=== PATIENT | female | born 1995 | race Two or more races ===

== ENCOUNTER 2018-05-01 13:14 | Emergency (ER) | payer MEDICAID ==
--- NOTE | 2018-05-01 13:41 | EDPHY ---
H & P Stated Complaint: M1 Time Seen by Provider: 05/01/18 13:18 HPI/ROS: CHIEF COMPLAINT: Suicidal ideation HISTORY OF PRESENT ILLNESS: 22-year-old female prior history of suicide attempt at age 18 secondary to intentional overdose in the ER on M1 hold from [facility] services after she states that she was unable to keep herself safe, experiencing suicidal ideation without plan. Denies self-injurious behavior such as cutting burning or punching behavior. Denies complaints of pain or discomfort. Denies recent cold or flu-like symptoms or recent illness. REVIEW OF SYSTEMS: 10 systems reviewed and negative with the exception of the elements mentioned in the history of present illness PAST MEDICAL & SURGICAL HISTORY: History of depression and suicide attempt at age 18 SOCIAL HISTORY: Student. Nonsmoker. PHYSICAL EXAM (Prior to examination, patient consented to physical exam, hands were washed and my usual and customary physical exam procedures followed) 1) GENERAL: Well-developed, well-nourished, alert and oriented. Answering questions appropriately 2) HEAD: Normocephalic, atraumatic 3) HEENT: Pupils equal, round, reactive to light bilaterally. Sclera anicteric. 4) NECK: Full range of motion, no meningeal signs. 5) LUNGS: Clear auscultation bilaterally, no wheezes, no rhonchi, no retractions. 6) HEART: Regular rate and rhythm, no murmur, no heave, no gallop. 7) ABDOMEN: No guarding, no rebound, no focal tenderness, negative McBurney's, negative Sloan's, negative Rovsing's, negative peritoneal sign, 8) MUSCULOSKELETAL: Moving all extremities, no focal areas of tenderness, no obvious trauma. No peripheral edema or discoloration. 9) BACK: No CVA tenderness, no midline vertebral tenderness, no fluctuance, no step-off, no obvious trauma, no visual or palpable abnormality. 10) SKIN: No rash, no petechiae. 11) Psychiatric: Patient is oriented X 3, intermittently agitated DIFFERENTIAL DIAGNOSIS: In no particular order including but not limited to suicidal ideation, homicidal ideation, depression - Personal History LMP (Females 10-55): Now - Medical/Surgical History Hx Asthma: No Hx Chronic Respiratory Disease: No Hx Diabetes: No Hx Cardiac Disease: No Hx Renal Disease: No Hx Cirrhosis: No Hx Alcoholism: No Hx HIV/AIDS: No Hx Splenectomy or Spleen Trauma: No Other PMH: Anxiety - Social History Smoking Status: Never smoked Constitutional: Initial Vital Signs Temperature (C) 36.8 C 05/01/18 13:26 Heart Rate 82 05/01/18 13:26 Respiratory Rate 18 05/01/18 13:26 Blood Pressure 113/81 H 05/01/18 13:26 O2 Sat (%) 100 05/01/18 13:26 O2 Delivery Mode Room Air Allergies/Adverse Reactions: No Known Allergies Allergy (Unverified 05/01/18 13:25) Medical Decision Making ED Course/Re-evaluation: 1:40 p.m.: Patient on an M1 hold. Will obtain diagnostic studies and consult with mental health plastic design applier. I saw this patient independently based on established practice protocols. Care of patient under supervision of secondary supervising physician Dr Mendoza with whom I discussed case. 4:00 p.m.: Mental health plastic design applier has evaluated the patient, Dr. Denzel Pride has vacated the M1 hold. Patient will be discharged. - Data Points Laboratory Results: Laboratory Results 05/01/18 13:40 05/01/18 13:40 05/01/18 05/01/18 05/01/18 13:40 13:40 13:40 WBC 7.58 10^3/uL 10^3/uL (3.80-9.50) RBC 4.79 10^6/uL 10^6/uL (4.18-5.33) Hgb 13.9 g/dL g/dL (12.6-16.3) Hct 41.1 % % (38.0-47.0) MCV 85.8 fL fL (81.5-99.8) MCH 29.0 pg pg (27.9-34.1) MCHC 33.8 g/dL g/dL (32.4-36.7) RDW 12.7 % % (11.5-15.2) Plt Count 214 10^3/uL 10^3/uL (150-400) MPV 10.9 fL fL (8.7-11.7) Neut % (Auto) 56.7 % % (39.3-74.2) Lymph % (Auto) 34.7 % % (15.0-45.0) Cassia % (Auto) 6.2 % % (4.5-13.0) Eos % (Auto) 1.2 % % (0.6-7.6) Baso % (Auto) 1.1 % % (0.3-1.7) Nucleat RBC Rel Count 0.0 % % (0.0-0.2) Absolute Neuts (auto) 4.30 10^3/uL 10^3/uL (1.70-6.50) Absolute Lymphs (auto) 2.63 10^3/uL 10^3/uL (1.00-3.00) Absolute Monos (auto) 0.47 10^3/uL 10^3/uL (0.30-0.80) Absolute Eos (auto) 0.09 10^3/uL 10^3/uL (0.03-0.40) Absolute Basos (auto) 0.08 10^3/uL 10^3/uL (0.02-0.10) Absolute Nucleated RBC 0.00 10^3/uL 10^3/uL (0-0.01) Immature Gran % 0.1 % % (0.0-1.1) Immature Gran # 0.01 10^3/uL 10^3/uL (0.00-0.10) Sodium 138 mEq/L mEq/L (135-145) Potassium 4.1 mEq/L mEq/L (3.3-5.0) Chloride 105 mEq/L mEq/L (97-110) Carbon Dioxide 21 mEq/l L mEq/l (22-31) Anion Gap 12 mEq/L mEq/L (8-16) BUN 9 mg/dL mg/dL (7-23) Creatinine 0.7 mg/dL mg/dL (0.6-1.0) Estimated GFR > 60 Glucose 98 mg/dL mg/dL (70-100) Calcium 9.5 mg/dL mg/dL (8.5-10.4) Beta HCG, Qual NEGATIVE Salicylates < 1.0 mg/dL L mg/dL (2.0-20.0) Urine Opiates Screen Acetaminophen < 10 mcg/mL L mcg/mL (10-30) Urine Barbiturates Ur Phencyclidine Scrn Ur Amphetamine Screen U Benzodiazepines Scrn Urine Cocaine Screen U Marijuana (THC) Screen Ethyl Alcohol < 10 mg/dL mg/dL (0-10) 05/01/18 13:38 WBC RBC Hgb Hct MCV MCH MCHC RDW Plt Count MPV Neut % (Auto) Lymph % (Auto) Cassia % (Auto) Eos % (Auto) Baso % (Auto) Nucleat RBC Rel Count Absolute Neuts (auto) Absolute Lymphs (auto) Absolute Monos (auto) Absolute Eos (auto) Absolute Basos (auto) Absolute Nucleated RBC Immature Gran % Immature Gran # Sodium Potassium Chloride Carbon Dioxide Anion Gap BUN Creatinine Estimated GFR Glucose Calcium Beta HCG, Qual Salicylates Urine Opiates Screen NEGATIVE (NEGATIVE) Acetaminophen Urine Barbiturates NEGATIVE (NEGATIVE) Ur Phencyclidine Scrn NEGATIVE (NEGATIVE) Ur Amphetamine Screen NEGATIVE (NEGATIVE) U Benzodiazepines Scrn NEGATIVE (NEGATIVE) Urine Cocaine Screen NEGATIVE (NEGATIVE) U Marijuana (THC) Screen NEGATIVE (NEGATIVE) Ethyl Alcohol Departure - Departure Disposition: Home, Routine, Self-Care Clinical Impression: Severe major depression Condition: Good Instructions: Depression (ED) Additional Instructions: Return to the ER immediately if you experience thoughts of hurting yourself, thoughts of hurting other people, thoughts of killing other people or killing yourself. Referrals: TOMY ALVARADO [Other] - As per Instructions
[2018-05-01 14:02] LABS: PLATELET COUNT 214 10^3/uL (150-400)
[2018-05-01 16:39] VITALS: BP 125/77
--- NOTE | 2018-05-01 18:14 | ASMTTLCEVL ---
TLC Evaluation - Basic Information Evaluation Start Date and 05/01/2018 03:30 PM Time Hospital Status Answers: M1 Hold 72-hr M1 Hold Start Date 05/01/2018 12:30 PM and Time Patient statement Notes: " I was having anxiety attacks and it was really intense." Narrative Notes: Pt is a 22 year old female who presented to [facility] Ed with [place] police on an M1. Pt initially presented to [facility] complaining of anxiety and panic. Pt stated, "" I was looking at all my school work, tests and homework. I had only slept 2 hours, I bailee't eaten. I was claudio relationship with this nick, now I'm not so sure and I was just freaking out in my room." Pt stated she went to the [facility] to talk to someone and stated she felt like she, "wasn't in her right mind," and stated " I don't think I would have done anything, I was just in a state of panic and I was always told I could talk to someone if I needed to so I went to the crisis center. Pt stated she did not have SI at that time just felt unable to make decisions. Pt is denying SI at this time. Pt reports getting anxiety attacks a couple times a week. She reports she used to have them several times a day. This contract technical writer spoke with pt's brother, Junior who stated pt has been dealing with anxiety and panic attacks for awhile and this summer, they were really bad and moscoso a significant negative ipmact on pt's life. He stated they have affected her school work and work. Junior stated pt has been to the ER many times over the summer for panic attacks and they cannot find the cause for her having them as often as she does. Pt reports she feels like she is having a heart attack when she gets them, her arms go numb,passess out and sometimes she throws up. Junior stated she has never made suicidal statements in the past to his knowledge. Diagnosis History Notes: Pt stated she was dx with anxiety and panic disorder. Prior suicide attempts Notes: Pt has 1 prior suicide attempt at age 18 by OD. Prior hospitalizations Notes: Pt was hospitalized at age 18 at [facility]. Treatment Responses Notes: unknown History of violence Notes: Pt denied any hx of violence. Therapist: None Psychiatrist: None Medications (name, dosage, route, freq uency) Notes: Pt stated she takes two meds but does not recall the names. Both are take to treat her anxiety disorder. Allergies/Reaction Notes: Nka Sleep Notes: Pt reported " My sleep is really weird, really off. It's hard to explain." Pt declined to provide more information. Appetite Notes: Pt declined to answer Medical/Surgical history Notes: None reported. Substance use history (frequency, intensity, his tory, duration) Notes: Pt denied any etoh/drug use. Utox negative for all substances. Bal was.0. Family composition Notes: Pt's parents live in [place]. Pt has a brother who lives in [place] and lives approx 5 minutes from pt. Need for family Answers: No participation in patient's care Family psychiatric/substance abuse history Notes: Unable to assess. Developmental history Notes: Pt grew up in [place]. Pt reported struggling academicaly in school as a child and stated, " I always really struggled to learn. It just seemd harder for me to learn than for others." Pt denied any add/adhd hx. Pt denied any concussions/loc. Pt denied any childhood abuse hx. Abuse concerns Answers: None Marital status/children Notes: Pt is unmarried, no children. Living situation Notes: Pt [facility] an [facility]. Sexual history/orientation Notes: Heterosexual. Peer support/family strengths Notes: Pt reports having good friends. 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 Pt reports she is studying very hard but states it is very hard and is not sure how well she is doing. " I just want to pass." Work history Notes: Pt is not working. Notes: None Legal Notes: Pt denied any legal problems. Gnosticist/Spiritual Notes: None that would intefere with tx. Leisure Notes: Pt enjoys drawing. Collateral Notes: Brother-Junior Patient's strengths Answers: Artistic/Creative/Musical (Please select at least TWO strengths): Insightful Intelligent Motivated for Treatment Willingness TLC Evaluation - Mental Status Exam Appearance: Answers: Appropriate Eye Contact: Answers: Avoiding Mood: Answers: Sad Affect: Answers: Calm Nervous Behavior: Answers: Cooperative Anxious Guarded Speech: Answers: Relevant Logical Clear Thought Process: Answers: Organized Oriented Alert Insight: Answers: Good Judgement: Answers: Good Depression Answers: Sad Mood Signs/Symptoms: Anxiety Signs/Symptoms Answers: Generalized Anxiety Panic Attacks Hallucinations: Answers: None Pt reported to have Answers: No suicidal/self-injuring ideation/behavior? Pt reported to be making Answers: No suicidal/self-injuring threats? Pt reported to have Answers: No aggression/assault ideation/behavior? Pt reported to be making Answers: No aggression/assault threats? Pt exhibits inability to Answers: No care for self/grave disability? Ideation/behavior is Answers: No chronic? History of Answers: Yes suicidal/self-injuring ideation, behavior, or threats? History of Answers: No aggressive/assaultive ideation, behavior, or threats? History of serious Answers: No physical harm to self/others while in treatment setting? TLC Evaluation - Suicide/Homicide Risk Suicide Risk Factors: Answers: < 20 or > 40 Years of Age Anxiety/Panic, Severe Prior Suicide Attempt(s) Homicide/violence risk Answers: None factors: Current Suicidal Answers: No Ideation? Current Suicidal Ideation Answers: No in the Past 48 Hours? Current Suicidal Ideation Answers: No in the Past Month? Current Suicidal Answers: No Ideation, Worst Ever? Suicide Internal Answers: Absence of Psychosis Protective Factors: Suicide External Answers: Social Support Protective Factors: Ranking of patient's Answers: Low suicidal risk: Ranking of patient's Answers: Low homicidal risk: TLC Evaluation - Wrap-up AXIS I Diagnosis (include DSM-V and ICD-10 codes), must also be entered in [employer], which is the source of truth. Notes: Generalized Anxiety Disorder 300.02 (F41.1) Panic Disorder 300.01 (F41.0) Evaluation End Date and 05/01/2018 06:00 PM Time (HH:MM): Date Signed: 05/01/2018 06:13 PM Electronically Signed By:Danika Hernandes
--- NOTE | 2018-05-01 18:17 | ASMTTCLDSP ---
TLC Discharge Disposition If Answers: Yes DISCHARGED: Patient/family given suicide hotline info & SAMHSA brochure? Disposition Notes: Notes: Pt was given resources for local support groups that target anxiety disorders in [place]. Pt was also given resources on [facility] and also encouraged to start services with [facility]. Pt was given a brochure on suicide awareness and prevention. Discharge Concerns/Recommendations: Notes: In consultation with [facility] ED physician, Ze Alas MD, and on-call psychiatrist, Denzel Pride MD, both concurred that pt does not appear to meet 27-65 criteria requiring psychiatric hospitalization as pt does not appear to be an imminent risk of harm to self/others/gravely disabled due to a mental illness condition. Date and time M1 hold 05/01/2018 04:00 PM vacated (time format is hh:mm): Type of Hold: Answers: M1/72-hour Hold Date Signed: 05/01/2018 06:16 PM Electronically Signed By:Danika Hernandes
== END 2018-05-01 16:39 | disposition home or self-care (01) ==
DX: R45.851 Suicidal ideations (principal); F33.9 Major depressive disorder, recurrent, unspecified; Z91.5 Personal history of self-harm
CPT/HCPCS: 80305; G0480